=== PATIENT | female | born 1965 | race Caucasian/White ===

== ENCOUNTER 2018-10-15 09:03 | Emergency (ER) | payer OTHER ==
[~2018-10-15] VITALS: Ht 167.6 cm; Wt 90.6 kg
[2018-10-15 10:08] VITALS: BP 167/99
== END 2018-10-15 10:42 | disposition home or self-care (01) ==
LOC: ED 09:43
DX: M54.5 Low back pain (principal)
CPT/HCPCS: 96372; 99283; J1885